=== PATIENT | female | born 2005 | race Caucasian/White ===

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

== ENCOUNTER → 2025-01-27 | Outpatient (CLI) | payer OTHER ==
[2025-01-27 15:15] LABS: Basophils # (A) 0.03 X 10*3/uL (0.00-0.10); Basophils % (A) 0.4 %; Eosinophils # (A) 0.05 X 10*3/uL (0.04-0.35); Eosinophils % (A) 0.6 %; HCT 38.9 % (37.2-46.3); HGB 12.7 g/dL (12.0-15.0); Immature Grans, Automated 0.30 %; Lymphocytes # (A) 2.56 X 10*3/uL (0.90-5.00); Lymphocytes % (A) 32.4 %; MCH 27.6 pg (27.0-32.0); MCHC 32.6 g/dL (32.0-37.0); MCV 84.6 FL (80.0-97.0); Monocytes # (A) 0.75 X 10*3/uL (0.20-1.00); Monocytes % (A) 9.5 %; NRBC Per 100 WBC 0 X 10*3/uL (0.00-0.01); Neutrophils # (A) 4.50 X 10*3/uL (1.80-7.70); Neutrophils % (A) 56.8 %; Platelet Count 372 X 10*3/uL (140-440); RBC 4.60 X 10*6/uL (4.10-5.20); RDW 13.0 % (11.5-14.5); WBC 7.91 X 10*3/uL (4.50-10.00)
[2025-01-27 15:47] LABS: ALT 17 U/L (8-44); AST 19 U/L (13-35); Albumin 4.3 g/dL (3.8-4.9); Albumin/Globulin Ratio 1.43 Ratio (1.60-3.17); Alkaline Phosphatase 114 U/L (41-126); Anion Gap 12.30 mmol/L (4.00-12.00); BUN/Creat Ratio 20.00 Ratio (12.00-20.00); Blood Urea Nitrogen 14.0 mg/dL (9.0-27.0); Calcium 9.6 mg/dL (8.7-10.3); Carbon Dioxide 18.7 mmol/L (21.6-31.8); Chloride 107 mmol/L (96-109); Globulin 3.0 g/dL (1.6-3.3); Glucose 95 mg/dL (70-110); Potassium 4.4 mmol/L (3.5-5.5); Sodium 138 mmol/L (135-145); Total Protein 7.3 g/dL (6.2-8.2)
== END | disposition home or self-care (01) ==
LOC: LABWHC1 12:32
PROVIDERS: ATTEND Dermatology MOHS-Micrographic Surgery
DX: L28.1 Prurigo nodularis (principal)
CPT/HCPCS: 36415; 80053; 85025